=== PATIENT | male | born 1950 | race Two or more races ===

== ENCOUNTER → 2020-09-20 16:50 | Outpatient (CLI) | payer OTHER | END | disposition home or self-care (01) | LOC: PPH VACUNA 16:50 | PROVIDERS: ATTEND Emergency Medicine Pediatric Emergency Medicine | DX: Z23 Encounter for immunization (principal) ==

== ENCOUNTER 2020-10-11 10:42 | Outpatient (CLI) | payer OTHER | END 2020-10-11 12:00 | disposition home or self-care (01) | LOC: PPH VACUNA 10:42 | PROVIDERS: ATTEND Emergency Medicine Pediatric Emergency Medicine | DX: Z23 Encounter for immunization (principal) ==